=== PATIENT | male | born 1965 | race Caucasian/White ===

== ENCOUNTER 2021-08-23 06:22 | Observation (INO) ==
--- NOTE | 2021-08-13 17:52 | PAT Medication Instructions ---
Medication Instructions Date of Service August 13, 2021 Home Medications niacin 50 mg tablet 50 mg PO QPM metoprolol succinate 50 mg tablet,extended release 24 hr (Toprol XL) 50 mg PO QPM vitamin B complex 1 cap PO QPM STOP taking 48 hours before surgery niacin 50 mg tablet 50 mg PO QPM Take evening before surgery metoprolol succinate 50 mg tablet,extended release 24 hr (Toprol XL) 50 mg PO QPM vitamin B complex 1 cap PO QPM OTHERWISE NOTHING TO EAT OR DRINK AFTER MIDNIGHT Other Notes If you have any questions please call us at [phone] or [phone] or [phone] or [phone]
--- NOTE | 2021-08-15 10:27 | Anesthesiology Consultation ---
Date of Service August 15, 2021 Assessment & Plan (1) Encounter for pre-operative examination: Chart Review Chart Review: Acceptable Risk for Surgery (pending cardio clearance 08/17 and preop Covid testing results ) and Patient seen in Pre Admission Testing -Discussed with Dr. Schmidt- due to bifascicular block- patient needs set up for cardio clearance- pt scheduled with [facility] on 08/17/21 at 1030am. Per PAT appt on 08/15/21, patient denies any recent travel or large group activities. Wears mask when required. No known Covid positive exposures or Covid related symptoms. No known Covid infection in the past 90 days. Pt is fully vaccinated for Covid. Preop Covid testing scheduled 08/21/21= will await results. Educated on importance of self quarantining, social distancing and wearing mask in public for the patient one week prior to surgery and after Covid testing done Consults Requested cardiac (secondary to new onset bifascicular block ) Teaching & Discussion Pre-Anesthesia Teaching/Discussion Notes: Instructed NPO after midnight before surgery,except medications with 15 cc of water. Medication instructions provided according to the PAT guidelines. History Surgery Operation Date: 08/23/21 08:15 Proposed Procedures p Robotic Laproscopic Assisted Radical Retropubic Prostateectomy, Possible Open, Possible Pelvic, Possible Pelvic Lymph Node Dissection, Possible Suprapubic Tube Placement - Juan Antonio Marcelo, Height/Weight Height: 5 ft 9 in Weight: 106.5 kg Allergies Allergy/AdvReac Type Severity Reaction Status Date / Time No Known Allergies Allergy Verified 08/10/21 08:00 Medications Home Medications Medication Instructions Recorded Confirmed Last Taken niacin 50 mg tablet 50 mg PO QPM 05/03/21 08/10/21 Unknown metoprolol succinate 50 mg 50 mg PO QPM 08/10/21 08/10/21 Unknown tablet,extended release 24 hr (Toprol XL) vitamin B complex 1 cap PO QPM 08/10/21 08/10/21 Unknown Past Medical History Medical History Cancer PROSTATE Hypertension Exercise / Class Metabolic Activity II 4-5 Yardwork/Stairs/Walk up hill (one flight of stairs - no chest pain or SOB ) Past Family History Family History Father , Passed age 63 of [place] No problems noted. Mother , Passed age 42 of MVA No problems noted. Brother No problems noted. Brother Prostate cancer, Onset Age: 58 Prostatectomy, then salvage radiation Sister No problems noted. Sister Breast cancer, Onset Age: 70 Sister No problems noted. Sister No problems noted. Son No problems noted. Son No problems noted. Son No problems noted. Other No known health problems Past Surgical History Surgical History History of dental surgery At 6 years of age- dental extraction Past Anesthesia History No Hx of Anesthesia Complications and No Family Hx of Anesthesia Complications History of PONV No Hx of Motion Sickness Social History Smoking Status: Never smoker Do You Dip or Chew Tobacco: No Hx Alcohol Use: Yes Alcohol type: beer, wine and hard liquor alcohol intake frequency: 0-2 drinks per day (2-3 drinks/day ) Hx Substance Use: Yes substance use type: marijuana Substance Use Type Other:: MARIJUANA INH 1-2 X A WEEK-NO CARD Review of Systems Hx of snoring - no witnessed apnea- no hx of sleep study Patient denies chest pain, shortness of breath, dyspnea on exertion, reflux, cough, wheezing, palpitations. No hx of seizures, stroke, IN. No hx of blood clots or blood transfusions Physical Exam Vital Signs VITALS BP 150/92 (manually) P 63 TEMP 98.2 SP02 99% RESP 16 Constitutional no acute distress ENMT Mouth: no TMJ clicking Thyromental Distance: > or= 3.5 Finger Breadths (3.5) Mallampati Class: II Neck + facial hair (advised pt to shave facial hair ); neck extension not limited Respiratory normal respiratory effort; no respiratory distress Auscultation: lungs clear to auscultation bilaterally; no wheezes Cardiovascular Rate/Rhythm: regular rate and regular rhythm Heart Sounds: no murmur Vessels: no carotid bruit Musculoskeletal Spine: no pain with cervical ROM Extremities: extremities normal to inspection Psychiatric Orientation: alert Lab Results Anesthesia Preop Results Results Anesthesia Widget: WBC 4.51 K/uL (4.8-10.8) L 08/15/21 Hgb 16.6 g/dL (14.0-18.0) 08/15/21 Hct 48.9 % (42-52) 08/15/21 Plt 178 K/uL (130-400) 08/15/21 Na 141 mmol/L (136-145) 08/15/21 K 5.1 mmol/L (3.5-5.1) 08/15/21 Cl 108 mmol/L (98-107) H 08/15/21 CO2 29 mmol/L (21-32) 08/15/21 BUN 18 mg/dl (6-23) 08/15/21 Creat 0.88 mg/dl (0.6-1.4) 08/15/21 Glucose Level 84 mg/dl (70-99(Fasting)) 08/15/21 Blood Type O Positive 08/15/21 Antibody Screen NEGATIVE 08/15/21 Testing Laboratory Results 08/15/21= UA: Negative Electrocardiogram Date: 08/15/21 Sinus rhythm with first-degree AV block at 62 bpm. Right bundle branch block. Left anterior fascicular block Bifascicular block Chest X-Ray Date: 08/15/21 Findings: + NAD Note is made of mild elevation/eventration of the right hemidiaphragm. Other Testing Nuclear Bone Scan 04/16/21= No evidence of skeletal metastatic disease
[~2021-08-23 06:22] MED LIST: HEPARIN SOD 5,000 UNIT/0.5 ML VIAL SQ SCH; LACTATED RINGER'S 1,000 ML IV SCH; LR 15ML/HR IV SCH; ceFAZolin 2000MG 2,000 MG/15 ML SYR IV SCH; cefOXitin 2,000 MG in DEXTROSE 5% 50 ML IV SCH
[2021-08-23] MEDS ORDERED: ONDANSETRON INJ 2 MG/ML 2 ML VIAL ONE (06:40)
[2021-08-23] MEDS ORDERED: MIDAZOLAM HCL 1 MG/ML 2ML VIAL ONE (06:40)
[2021-08-23] MEDS ORDERED: DEXAMETHASONE SOD INJ 4 MG/ML VIAL ONE (06:40)
[2021-08-23] MEDS ORDERED: PROPOFOL IV EMULSION 10 MG/ML 20 ML VIAL IV ONE (06:40)
[2021-08-23] MEDS ORDERED: KETAMINE 50 MG/5 ML SYRINGE ONE (06:40)
[2021-08-23] MEDS ORDERED: fentaNYL citrate 100 MCG/2 ML VIAL ONE ×2 (06:40→11:37)
[2021-08-23] MEDS ORDERED: HYDROmorphone INJ 2 MG/ML SYR/VIAL ONE (06:40)
[2021-08-23] MEDS ORDERED: ROCURONIUM BROMIDE 10 MG/ML 5 ML VIAL IV ONE ×4 (06:40→09:10)
[2021-08-23] MEDS ORDERED: ACETAMINOPHEN 1000 MG/100 ML IV IV ONE (06:45)
[2021-08-23] MEDS ORDERED: SUGAMMADEX SODIUM 200 MG/2 ML VIAL IV ONE (06:45)
--- NOTE | 2021-08-23 07:16 | History & Physical Bridge Note ---
Date of Service August 23, 2021 History & Physical Bridge Note I have examined the patient, reviewed the History & Physical and in the interval since the performance of the History & Physical I have noted the following changes of clinical significance: no changes noted
[2021-08-23] MEDS ORDERED: BUPIVACAINE 0.5 % 5 MG/1 ML MPF 30ML VIAL ONE (08:10)
[2021-08-23] MEDS ORDERED: GLYCOPYRROLATE 0.2 MG/ML VIAL ONE (09:07)
[2021-08-23] MEDS ORDERED: PHENYLEPHRINE HCL 10 MG/ML VIAL ONE (09:16)
[2021-08-23] MEDS ORDERED: HYDROmorphone INJ 2 MG/ML SYR/VIAL IV PRN (09:18)
[2021-08-23] MEDS ORDERED: ePHEDrine sulfate 50 MG/ML AMP IV PRN (09:18)
[2021-08-23] MEDS ORDERED: ONDANSETRON INJ 2 MG/ML 2 ML VIAL IV PRN ×2 (09:18→13:24)
[2021-08-23] MEDS ORDERED: ATROPINE SULFATE 0.1 MG/ML 10ML SYR IV PRN (09:18)
[2021-08-23] MEDS ORDERED: FLOSEAL HEMOSTATIC MATRIX 10ML TOP ONE (10:26)
[2021-08-23] MEDS ORDERED: SURGICEL ABSORB HEMOSTAT 2IN X 14IN TOP ONE (10:26)
--- NOTE | 2021-08-23 11:57 | Operative Report ---
PG Post Operative Report Pre & Post Diagnosis Operation Date: 08/23/21 08:15 Pre-Op Diagnosis: Prostate Cancer Post-Op Diagnosis: Prostate Cancer I identified the patient and participated in the time-out.: Yes Procedure Operation Date: 08/23/21 08:15 Actual Procedures p Robotic Laproscopic Assisted Radical Prostatectomy and Bilateral Inguinal Lymph Node Dissection with closure of small umbilical hernia (Not Applicable) - Juan Antonio Marcelo DO Surgeon Juan Antonio Marcelo, II, DO Metal Casket Maker Awais IBRAHIM Estimated Blood Loss 50 Findings Consistent with Post-Op Diagnosis Small umbilical hernia closed during closure of umbilical incision. Thickened and adhered tissue of the left lateral posterior with additional tissue taken along that edge. Specimens Prostate and Seminal Vesicle Left Pelvic Lymph Nodes Right Pelvic Lymph Nodes. Drains 18 Fr Silicon Boyd catheter. Anesthesia Type General Complications none Disposition Disposition: Recovery Room Indications Patient with Prostate Cancer. Intermediate High volume prostate cancer. Risk and benefits were discussed at length. Patient elected to undergo robotic assisted laparoscopic Radical Prostatectomy. Description of Procedure The patient was brought to the operative suite and placed under general endotracheal intubation anesthesia in the supine position. The patient was transferred to the dorsal lithotomy position. At this point, the patient prepped and draped in the usual sterile fashion and a timeout was completed. Preoperative antibiotics of Ancef 2 grams had been given. ABEL's and SCD's were placed on the patient's lower extremities. A catheter was placed using sterile technique. With the time out completed the patient was placed into Trendelenburg and the skin at the umbilicus was anesthetized. A small incision was made superior to the umbilicus. A Varess Needle was placed and confirmed to be in the abdominal cavity. Water drop test passed. The Abdominal cavity was insufflated to 15 mmHG. The camera port was then placed. A laparoscopic camera was placed into the port and the abdominal cavity inspected. No concerning features were noted. At this point, the skin was marked for port placement and 8mm working ports were placed. The skin was anesthetized down to fascia and an approx 1cm incision was made to place the 3 x 8mm ports. A 12 mm and 5 mm orthodontic assistant ports were also placed in similar fashion under direct visualization. The patient was transferred into steep Trendelenburg position and the legs lowered. The robot was positioned and docked. The camera was placed and all trocars were positioned under direct visualization. Awais IBRAHIM was integral in port placement, camera utilization, and docking procedure. She remained in sterile attire and then proceeded to assist the remainder of the case. At this point, I transitioned to the robotic console. At this point, the sigmoid colon was mobilized superiorly and the pelvis assessed. Adhesions were freed to allow mobilization. The peritoneum in the midline was opened between rectum and bladder and the vas deferens and seminal vesicles exposed. These were dissected with blunt technique. The vas was clipped and cut and mobilized. Cautery was used to assist dissection avoiding the tissue posteriorly near the rectum. The tissues lateral to the seminal vesicles were clipped with a hemolock and all bleeding controlled. This was taken as inferior as possible from this position. The medial umbilical ligaments were then identified and the peritoneum directly lateral on the right followed by the left was opened. The tissues were bluntly dissected to free the bladder's lateral attachments. This was taken down to the pubic bone and exposed the endopelvic fascia bilaterally. The medial ligaments were cut and the bladder dropped. The tissues was dissected anterior to the prostate. The endopelvic fascia on each side was then opened and the lateral edges of the prostate dissected. The Dorsal venous complex of the prostate was dissected and assessed. A 2-0 suture was used to ligate the vessels. A suspension stitch was used and clipped. Electrocautery was used to cut the anterior attachments, the puboprostatic ligaments, and venous tissues. The boyd was manipulated to better visual the bladder neck and dissection was taken using electrocautery. The bladder neck was opened and dissected from the prostate. The UO were identified and dissection taken in a direction to avoid each side. The vas stump and seminal vesicles were exposed and used to assist in traction to dissect. The prostatic pedicles were better exposed. The posterior prostate was dissected. An attempt was made to limit cautery and utilize cold dissection of the lateral posterior prostate to attempt preservation of the neurovascular bundle bilaterally. Hemolock clips were utilized to clip the prostatic pedicle bilaterally. The dissection was taken to the apex of the prostate. The anterior prostate was released and the urethra exposed. The left side had thickened and adhered appearance and due to this additional tissue was dissected along the base on the left. The right was able to be maintained. Cold cutting was used to open the anterior portion and expose the catheter. This was removed and the urethra incised. The prostate was further freed and grasped and removed from the field. The entire dissection bed was inspected. Hemostatic agent was placed in the region. No areas of injury or bleeding was noted. Care was taken to examine the perirectal tissues. A probe was placed and no injuries or other issues were observed. The bladder neck and urethra were then approximated with a running barbed suture starting at the 5 o'clock position and moving to the 12 o'clock on each side. This was tied at the anterior portion. A leak test was completed without any evidence of issues. The right and left pelvic lymph tissue was identified in relation to the iliac vessels. Distal dissection was taken to the Node of Gio. Inferiorly the obturator vessels and nerve were identified. Lymphatic tissue within the s urround fat tissue was dissected. This packet of tissues were sent for pathologic analysis and lymph node assessment. This was done for each separate side. Hemostatic agent was placed on the exposed vessels. The entire dissection space was inspected one final time. No bleeding or injuries or areas of concern were noted. No tumor or other concerning features were noted. At this point, the robot was undocked and moved away from the patient. The patient was taken out of Trendelenberg. The port sites were all assessed laparoscopically. The endoscopic bag was moved into the midline port. The 12 mm port site was closed with the Zenon Schmid device. The other ports were assessed and no issues observed. The umbilical incision was opened further exposing fascia which was then opened in order to removed the prostate in the bag. The prostate was removed. A small umbilical hernia was noted and was associated with the umbilical incision. The hernia sac was dissected out and the opening was closed together with the rectus fascia. A running PDS suture was used to close fascia. The skin at each site was closed with a stapling device. The area was cleaned and bandages placed on each incision. The patient was cleaned and bandaged, aroused from anesthesia, and transferred to the pacu in stable condition having tolerated the procedure well with no complications. I was present and participated in all aspects of the procedure. Awais IBRAHIM was critical in the portions as mentioned above. Will plan to observe postoperatively and monitor. Boyd to be remain in place until followup. I attest to the content of the Intraoperative Record and any orders documented therein. Any exceptions are noted below.
[2021-08-23] MEDS: fentaNYL citrate 100 MCG/2 ML VIAL IV PRN ×4 (12:17→12:32)
[2021-08-23 12:40] LABS: Basophils # (auto) 0.02 K/uL (0-0.2); Basophils % (auto) 0.1 %; Eosinophils # (auto) 0.02 K/uL (0-0.5); Eosinophils % (auto) 0.1 %; Hematocrit (blood only) 43.7 % (42-52); Hemoglobin 14.8 g/dL (14.0-18.0); Immature Granulocytes # (auto) 0.03 K/uL (0.00-0.02); Immature Granulocytes % (auto) 0.2 %; Lymphocytes # (auto) 1.11 K/uL (1.2-3.4); Lymphocytes % (auto) 7.7 %; Mean Corpuscular Hemoglobin 32.6 pg (25-34); Mean Corpuscular Volume 96.3 fL (80-100); Mean Platelet Volume 11.4 fL (7.4-10.4); Monocytes # (auto) 0.17 K/uL (0.11-0.59); Monocytes % (auto) 1.2 %; Neutrophils # (auto) 13.15 K/uL (1.4-6.5); Neutrophils % (auto) 90.7 %; Platelet Count 183 K/uL (130-400); RDW Standard Deviation 45.4 fL (36.4-46.3); Red Blood Count 4.54 M/uL (4.7-6.1)
[2021-08-23 12:46] LABS: Mean Corpuscular Hgb Conc 33.9 g/dL (32-36)
--- NOTE | 2021-08-23 13:00 | Anesthesiology Progress Note ---
Date of Service August 23, 2021 Anesthesia Post Procedure Vital Signs Vital Signs: Temp Pulse Pulse Resp BP Pulse Ox 08/23/21 12:45 108 H 19 100/69 95 08/23/21 12:35 113 H 21 107/61 96 08/23/21 12:25 91 H 13 101/75 100 08/23/21 12:15 102 H 20 125/82 100 08/23/21 12:05 103 H 23 126/83 100 08/23/21 11:58 96.8 F L 116 H 18 125/85 98 08/23/21 07:08 148/108 H 08/23/21 06:46 98.1 F 84 20 160/112 H 96 Pain Intensity Abdomen: Pain Intensity: 5 Transfer of Care Handoff Completed per policy Notes Mental Status: alert / awake / arousable and participated in evaluation Patient Amnestic to Procedure: Yes Nausea / Vomiting: adequately controlled Pain: adequately controlled Airway Patency, RR, SpO2: stable & adequate BP & HR: stable & adequate Hydration State: stable & adequate Anesthetic Complications: no major complications apparent and Pt Satisfied with anesthetic care
[2021-08-23 13:12] LABS: Calcium 8.9 mg/dl (8.5-10.1); Creatinine Clr Calc Pharmacy 88.9 ml/min; Est GFR (African American) 87.2 ml/min; Est GFR (Non-African American) 75.3 ml/min; Potassium 4.1 mmol/L (3.5-5.1)
[2021-08-23] MEDS: LACTATED RINGER'S 1,000 ML IV SCH ×2 (13:15→23:30)
[2021-08-23] MEDS ORDERED: MoRPHine SULFATE 2 MG/ML CARP IV PRN ×2 (13:24)
[2021-08-23] MEDS ORDERED: ACETAMINOPHEN 325 MG TAB PO PRN (13:24)
[2021-08-23] MEDS ORDERED: oxyCODONE HCL IR 5 MG TAB (IMMEDIATE RELEASE) PO PRN ×2 (13:24)
[2021-08-23] MEDS: ceFAZolin 2000MG 2,000 MG/15 ML SYR IV SCH ×2 (16:07→23:30)
[2021-08-23] MEDS: HEPARIN SOD 5,000 UNIT/0.5 ML VIAL SQ SCH (20:47)
[2021-08-23] MEDS ORDERED: METOPROLOL SUCC 50MG EXT REL TAB PO SCH (21:00)
[2021-08-24] MEDS: HEPARIN SOD 5,000 UNIT/0.5 ML VIAL SQ SCH (08:39)
[2021-08-24 08:49] LABS: Hematocrit (blood only) 35.9 % (42-52); Hemoglobin 12.2 g/dL (14.0-18.0); Immature Granulocytes # (auto) 0.01 K/uL (0.00-0.02); Immature Granulocytes % (auto) 0.1 %; Lymphocytes # (auto) 0.85 K/uL (1.2-3.4); Mean Corpuscular Hemoglobin 32.2 pg (25-34); Mean Corpuscular Volume 94.7 fL (80-100); Mean Platelet Volume 11.7 fL (7.4-10.4); Monocytes # (auto) 0.73 K/uL (0.11-0.59); Monocytes % (auto) 8.6 %; Neutrophils # (auto) 6.89 K/uL (1.4-6.5); Neutrophils % (auto) 81.3 %; Platelet Count 159 K/uL (130-400); RDW Standard Deviation 45.1 fL (36.4-46.3); Red Blood Count 3.79 M/uL (4.7-6.1); White Blood Count 8.48 K/uL (4.8-10.8)
[2021-08-24 09:11] LABS: BUN Creatinine Ratio 19.4 (10-20); Calcium 7.9 mg/dl (8.5-10.1); Creatinine Clr Calc Pharmacy 103.2 ml/min; Est GFR (African American) 104.5 ml/min; Est GFR (Non-African American) 90.2 ml/min; Potassium 4.3 mmol/L (3.5-5.1)
--- NOTE | 2021-08-24 09:26 | Urology Progress Note ---
Date of Service August 24, 2021 Assessment & Plan (1) Prostate cancer: Plan: - POD #1 s/p Robotic Laparoscopic Assisted Radical Prostatectomy and Bilateral Inguinal Lymph Node Dissection with closure of small umbilical hernia - Pt feeling well post procedure, progressing as expected. - Afebrile, vitals stable. - Labs reviewed - Wbc and creatinine normal. Hemoglobin stable. - Szymanski catheter intact, draining clear yellow urine. - Minimal pain. - Tolerating clear liquid diet. - Incisions appropriate. Plan - - Encourage ambulation. - Advance diet. - Maintain Szymanski catheter. - Anticipate home later today with Szymanski catheter given patient continues to do well. - Will reassess this afternoon. Admission and Anticipated Discharge Date Admission Date: August 23, 2021 Subjective POD #1 s/p robotic prostatectomy Seen at bedside this AM. Awake, resting comfortably in bed on arrival. No acute issues overnight. No fevers overnight. Tmax 37.7 yesterday evening at 2146. Minimal pain. Tolerating clear liquid diet, no nausea or vomiting. + Flatus. Szymanski catheter draining clear yellow urine. Incisions appropriate. Review of Systems Constitutional: as per Subjective / HPI Gastrointestinal: as per Subjective / HPI Genitourinary: + as per Subjective / HPI Physical Exam Constitutional: well developed and well nourished; no acute distress and not ill appearing Respiratory: normal respiratory effort and able to speak in complete sentences; no labored breathing and no audible wheezes Gastrointestinal (Abdomen): Inspection/Auscultation: abdomen normal to inspection; abdomen not distended Percussion/Palpation: abdomen soft; abdomen nontender and no guarding Surgical incisions appropriate. [place] intact with gauze dressing/tape covering. Musculoskeletal: Head/Neck/Chest: normocephalic Skin: No visible rashes or lesions to exposed skin areas Neurologic: moves all extremities and awake Psychiatric: Orientation: alert, oriented x 3 and cooperative Genitourinary: Szymanski catheter intact, draining clear yellow urine. Results & Data ([facility]) Vital Signs (Past 12 Hours) Vital Signs Temp Pulse Pulse Resp BP BP Pulse Ox 08/24/21 07:41 37.1 C 70 14 125/78 98 08/24/21 03:19 37.4 C 56 L 16 130/78 97 08/23/21 23:30 37.1 C 08/23/21 21:46 37.7 C H 104 H 16 119/79 92 PG Care Time/CCT Total # of Minutes Spent Total Time Spent with Patient: Total time spent is greater than 50% in coordination of care (as documented) at patient's floor/unit and/or counseling patient: Coding Level of Care Code None Diagnoses Prostate cancer C61
[2021-08-24] MEDS: LACTATED RINGER'S 1,000 ML IV SCH (09:45)
--- NOTE | 2021-08-24 14:54 | Discharge Summary ---
Date of Service August 24, 2021 Admission HPI Per Admitting Provider 56yo M with prostate cancer who presents for robotic prostatectomy Admission Exam Per Admitting Provider General: Alert in no acute distress. HEENT: Inspection normal Psychologic: Normal affect. Respiratory: Nonlabored. No use of accessory muscles. Skin: [place] and Dry. No rashes or visible lesions. Abdomen: Soft, nontender Principal Diagnosis Prostate Cancer Discharge Exam Constitutional: well developed and well nourished; no acute distress and not ill appearing Respiratory: normal respiratory effort and able to speak in complete sentences; no labored breathing and no audible wheezes Gastrointestinal (Abdomen): Inspection/Auscultation: abdomen normal to inspection; abdomen not distended Percussion/Palpation: abdomen soft; abdomen n ontender and no guarding Surgical incisions appropriate. Millicent intact with gauze dressing/tape covering. Musculoskeletal: Head/Neck/Chest: normocephalic Skin: No visible rashes or lesions to exposed skin areas Neurologic: moves all extremities and awake Psychiatric: Orientation: alert, oriented x 3 and cooperative Genitourinary: Szymanski catheter intact, draining clear yellow urine. Discharge Data Allergies Allergy/AdvReac Type Severity Reaction Status Date / Time No Known Allergies Allergy Verified 08/23/21 06:41 Procedures Performed Operation Date: 08/23/21 08:15 Actual Procedures p Robotic Laproscopic Assisted Radical Retropubic Prostatectomy and Bilateral Inguinal Lymph Node Dissection(Not Applicable) - Juan Antonio Marcelo DO Hospital Course (1) Prostate cancer: - POD #1 s/p Robotic Laparoscopic Assisted Radical Prostatectomy and Bilateral Inguinal Lymph Node Dissection with closure of small umbilical hernia - No acute issues postoperatively. - Labs appropriate. - Tolerating diet. - Ambulating without issue. - Minimal pain. - Incisions appropriate. - Szymanski catheter intact and draining clear yellow urine. - Expected clinical course reviewed with patient, he verbalized understanding. All questions were answered. - Will arrange postoperative follow-up appointments. - Pt stable for discharge POD #1 - Home with Szymanski catheter. Total Time Total Time Spent Total Time Spent (In Minutes): 15 Discharge Plan Discharge Items Patient Disposition: Home - Self-Care Reason For Visit: Prostate Cancer Discharge Diagnosis: Prostate Cancer Activity: Per Instructions section Lifting: No more than 25 pounds Bathing Comment: OK to shower. No tub baths or soaks. Sexual Activity: Wait until after follow-up appointment Exercise/Sports: Wait until after follow-up appointment Driving/Machine Use: Do not drive if taking prescription pain medication. Non-emergency contact: Surgeon and Urologist Call non-emergency contact if: you have any medication questions, your pain is not controlled, your pain is worsening, you have a fever, your wound has increased redness, your wound has increased drainage and your wound pain has increased Follow-up/Referrals: Dionicio Velazquez [Primary Care Provider] - Diet: Regular Addtl Attending Provider Instructions: Please take all medications as prescribed and keep all follow-ups as scheduled. Please call our office at [phone] with any questions, concerns or need to reschedule appointments for any reason. We are happy to assist you We have sent an antibiotic to your pharmacy of choice. Please begin antibiotic as prescribed the day BEFORE your scheduled catheter removal at [facility]. Please continue antibiotic every 12 hours until complete. The urology office will contact you to schedule your follow-up appointments. Activity: We recommend having someone with you for the first few days after surgery to help care for you. For the first 2 weeks after surgery, we would like you to get up and walk around your house. However, we recommend limit physical activity that would increase your heart rate. This will allow your body to rest and heal. Take naps if you feel tired. Don't lift anything heavier than 10 pounds, mow the law or ride a bicycle until your follow-up appointment. Please avoid long car rides. Home Care: Unless directed otherwise, drink 6 to 8 glasses of water a day (enough to keep your urine light colored). This will also help keep a healthy flow of urine. We recommend using a stool softener for the first two weeks to avoid constipation. Szymanski Catheter or Suprapubic Catheter care: Keep the catheter well secured with either a leg back or leg strap with large bag. Empty your bag when it's about half full. You may notice some blood in the bag. This is normal after surgery and while the catheter is in place. Use mild soap (such as Dove or Dial) and water to wash the catheter and the head of your penis daily, or more frequently if needed. Return to your normal diet, we encourage good protein intake to promote healing. You may shower as normal. Please avoid tub baths or soaking until catheter removed and incisions well healed. Wearing sweat pants while you have the catheter is recommended, they will be more comfortable. Follow-up Your follow up appointments for having your catheter removed, and follow up with your physician should already be scheduled. If you have any questions regarding this, please contact our office. Your final pathology report will be discussed at your physician follow-up appointment. Call [facility] at [phone] right away if you have any of the following: Chest pain or trouble breathing (call 911 or go to the hospital) Fever of 101F or higher, uncontrolled vomiting Heavy bleeding, clots, or bright red blood from the catheter Catheter that falls out or stops draining Foul-smelling discharge from your catheter Redness, swelling, warmth, or increased pain at your incision site Drainage, pus, or bleeding from your incision Pending Studies at Discharge: Yes (pathology) Stand-Alone Forms: [facility], Opioid Pain Management, Smoking Cessation Medications and DC Order Prescriptions: New oxycodone-acetaminophen [Percocet] 5-325 mg tablet 1 tab PO Q8H PRN (Reason: pain) Qty: 7 RF: 0 docusate sodium [Colace] 100 mg capsule 100 mg PO BID Qty: 30 RF: 0 Continued niacin 50 mg tablet 50 mg PO QPM RF: 0 metoprolol succinate [Toprol XL] 50 mg Tablet Extended Release 24 Hr 50 mg PO QPM RF: 0 vitamin B complex Capsule 1 cap PO QPM RF: 0 Discharge Orders: Discharge Order (Routine); Ordered 08/24/21 Ordered By: Elvia Cardenas/Other Patient Handouts: Emptying and Cleaning Your ..., Indwelling Urinary Catheter Dc, Leg Bag Care Dc Admission Data Admit Date/Time: 08/23/21 12:02 Attending Provider: Juan Antonio Marcelo Admit Provider: Juan Antonio Marcelo Primary Care Provider: Dionicio Velazquez Other Interventions: Discharge Summary Assessment (RN) Last Done: 08/24/21 14:38 Coding Level of Care Code D/C DAY MANAGEMENT <30 MINS Diagnoses Prostate cancer C61
== END 2021-08-24 15:55 | disposition home or self-care (01) ==
LOC: ASU 06:22 → INTOOBSV 12:02 → 3N 12:02